=== PATIENT | female | born 1930 | race Caucasian/White ===

== ENCOUNTER 2019-03-06 14:05 | Emergency (ER) | payer MEDICARE, OTHER ==
[~2019-03-06] VITALS: Ht 152.4 cm; Wt 61.2 kg
[~2019-03-06 14:05] MED LIST: ADULT LOW DOSE81 MG PO; ALEVE220 M1 PO; ALEVE220 MG PO; ALLOPURINOL 30300 M1 PO; ANASTROZOLE1 MG; ARICEPT 5 MG TAB5 MG PO; ARIMIDEX1 MG PO; ARTIFICIAL TEA1 EACH OP; ARTIFICIAL TEA1 EACH OPHTHALMIC; ARTIFICIAL TEAR15 M3 OPHTHALMIC; ASPIR 8181 MG PO; ASPIRIN81 M2 PO; AVAPRO 150 MG150 M1 PO; AVAPRO 150 MG150 MG; BACTRIM 400-801 EACH PO; BENTYL10 MG PO; CALCITRATE200 MG PO; CALCIUM 500 +1 EAC5 PO; CALCIUM CIT PO; CALCIUM CITRATE; CINNAMON; CITRACAL + D C1 EACH PO; CLOBETASOL EMOL15 GM TP; CLOBETASOL PROP15 GM; CLOBETASOL PROP50 M1 TOP; CO Q-10 100 MG1 EACH PO; COLACE 100 MG100 MG PO; COLACE100 MG PO; COQ-10100 MG; COQ-10100 MG PO; CRESTOR PO; CRESTOR10 MG PO; CRESTOR5 MG PO; D3 DOTS2000 UNIT PO; DIABETA 5MG TABL5 MG PO; DITROPAN XL10 M1; FISH OIL 500 M1 EACH PO; FLAX OIL1000 MG PO; FLUZONE 2045 MCG/011; GLUCOPHAGE XR500 MG PO; GLYBURID-METFO1 EAC2 PO; GLYBURID-METFO1 EAC3 PO; GLYBURIDE 2.52.5 MG PO; HYDROCODONE-AP1 EAC6 PO; LEVAQUIN 500 M500 M2 PO; LEVAQUIN 500 M500 MG PO; LEVAQUIN PO; LIPEX10 MG PO; MAGNESIUM OXID400 MG PO; MAGOX 400400 MG PO; METFORMIN HCL500 MG PO; MIRALAX17 GM PO; MIRALAX255 GM PO; MUCINEX COUGH1 EACH PO; MUCINEX TA600 MG/TAB PO; MUCUS RELIEF D1 EAC1 PO; MUCUS RELIEF200 MG PO; NATURAL VITA100 UNIT PO; NORCO 5-325 TA1 EACH PO; ONDANSETRON HCL4 M2; ONDANSETRON HCL4 M2 PO; OXYBUTYNIN 5 MG5 M2 PO; OXYBUTYNIN ER 55 MG PO; OXYGEN INH; OXYGEN NASAL; PANTOPRAZOLE SO40 M1 PO; PEPCID AC20 M1 PO; PERCOCET 5-3251 EACH PO; PLAVIX 75 MG TA75 M1; PLAVIX 75 MG TA75 M1 PO; PLAVIX 75 MG TA75 MG PO; PNEUMOVAX25 MCG/0.5; PRILOSEC 20 MG20 MG PO; PROTONIX40 M2; PROZAC 10 MG CA10 MG PO; PROZAC10 M1 PO; PROZAC10 MG PO; REMERON15 M1; RESPIRADONE; RISPERDAL0.5 MG PO; SLOW FE PO; SMZ-TMP PO; STOOL SOFTENER100 MG PO; TOPROL XL25 MG PO; TYLENOL325 MG PO; VENTOLIN HFA 1818 GM INH; VIMPAT100 MG PO; VIT E PO; VITAMIN C100 M1 PO; VITAMIN D1000 UNI1 PO; VITAMIN D2000 UNIT PO; VITAMIN D400 UNI1 PO; XANAX 0.5 MG0.5 MG PO; ZITHROMAX PO; ZOFRAN ODT4 MG PO; [UNRECOGNIZED DRUG - OTHER]; [UNRECOGNIZED DRUG - OTHER] PO
[2019-03-06] MEDS ORDERED: QUETIAPINE FUM100 MG PO (14:19)
[2019-03-06] MEDS ORDERED: REMERON15 MG PO (14:20)
[2019-03-06] MEDS ORDERED: BACTRIM DS TAB1 EACH PO ×2 (14:24→16:58)
[2019-03-06 14:59] LABS: ABSOLUTE BASOPHILS 0.1 thou/uL (0.0-0.2); ABSOLUTE EOSINOPHILS 0.1 thou/uL (0.0-0.7); ABSOLUTE LYMPHOCYTES 3.6 thou/uL (0.8-5.3); ABSOLUTE MONOCYTES 0.4 thou/uL (0.0-1.2); ABSOLUTE NEUTROPHILS 4.9 thou/uL (1.6-8.1); BASOPHILS 1.1 %; EOSINOPHILS 1.6 %; HEMATOCRIT 39.1 % (37.0-47.0); HEMOGLOBIN 13.1 gm/dL (12.0-15.0); LYMPHOCYTES 39.7 %; MCH 30.5 pg (26.0-34.0); MCHC 33.5 g/dL (28.0-37.0); MCV 91.2 fL (80.0-100.0); MONOCYTES 4.8 %; MPV 7.3 fl. (7.2-11.1); NUCLEATED RBCS 0 /100WBC; PLATELET COUNT* 390 thou/uL (150-400); POLYS 52.8 %; RBC 4.29 mil/uL (4.20-5.00); WBC 9.2 thou/uL (4.0-11.0)
[2019-03-06 15:24] LABS: ALBUMIN 3.2 g/dL (3.4-5.0); ALKALINE PHOSPHATASE 122 U/L (46-116); ANION GAP 13 mmol/L (7-16); BUN 24 mg/dL (7-18); CALCIUM 9.2 mg/dL (8.5-10.1); CHLORIDE 99 mmol/L (98-107); CO2 24 mmol/L (21-32); CREATININE 1.3 mg/dL (0.6-1.3); GLUCOSE 499 mg/dL (70-99); NT-PRO BRAIN NAT PEPTIDE 70 pg/mL (<300); POTASSIUM 4.3 mmol/L (3.5-5.1); SGOT 30 U/L (15-37); SGPT 34 U/L (30-65); SODIUM 136 mmol/L (136-145); TOTAL BILIRUBIN 0.2 mg/dL (<0.1-1.0); TOTAL PROTEIN 6.9 g/dL (6.4-8.2); TROPONIN-I LEVEL <0.06 ng/mL (<0.06)
[2019-03-06 15:58] LABS: URINE BILIRUBIN NEGATIVE (Negative); URINE BLOOD TRACE (Negative); URINE CLARITY CLEAR; URINE COLOR YELLOW; URINE GLUCOSE-RANDOM 3+ (Negative); URINE KETONES NEGATIVE (Negative); URINE LEUKOCYTES-REFLEX 1+ (Negative); URINE NITRITE-REFLEX NEGATIVE (Negative); URINE PROTEIN NEGATIVE (Negative); URINE SPECIFIC GRAVITY 1.015 (1.005-1.030); URINE UROBILINOGEN 0.2 E.U./dl (0.2-1.0)
[2019-03-06 16:07] LABS: MUCUS None Seen strn/LPF (None Seen); SQUAMOUS >10 Many /LPF (0-3)
[2019-03-06 16:08] LABS: CASTS None Seen /LPF (None Seen); CRYSTALS None Seen /LPF (None Seen); URINE RBC 0-2 Rare /HPF (0-2); URINE WBC-REFLEX 6-15 Few /HPF (0-5); WBC CLUMPS Few (None Seen)
[2019-03-06] MEDS ORDERED: MIRALAX17 GM PO (16:58)
[2019-03-06] MEDS ORDERED: NYSTATIN15 G3 TOP (16:58)
[2019-03-06] MEDS ORDERED: KEFLEX500 M1 PO (17:50)
[2019-03-06 18:01] VITALS: BP 157/68
--- NOTE | 2019-03-07 10:32 | EKG ---
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1930 Requested By: Danish Nguyễn Order Number: [id number] MD: Bandar Ding Measurements Intervals [place] Rate: 69 P: 61 SC: 193 QRS: -59 QRSD: 111 T: 81 QT: 402 QTc: 431 Interpretive Statements Sinus rhythm Left anterior fascicular block Probable left ventricular hypertrophy Anterior Q waves, possibly due to LVH, possible anterior scar Compared to ECG 05/10/2016 12:09:25 Left ventricular hypertrophy now present Q waves now present T-wave abnormality no longer present Electronically Signed On 03-07-2019 10:31:50 CDT by Bandar Ding [email or web address] <ELECTRONICALLY SIGNED> By: Bandar Ding MD, [facility] 03/07/19 1031 1432 1432 Bandar Ding MD, [facility] /EPI
== END 2019-03-06 18:02 | disposition home or self-care (01) ==
LOC: M.ERS 14:05
PROVIDERS: Nurse Practitioner Family; Physician Assistant
DX: N39.0 Urinary tract infection, site not specified (principal); K59.00 Constipation, unspecified; B37.3 Candidiasis of vulva and vagina; E11.65 Type 2 diabetes mellitus with hyperglycemia; I10 Essential (primary) hypertension; J45.909 Unspecified asthma, uncomplicated; E78.5 Hyperlipidemia, unspecified; K21.9 Gastro-esophageal reflux disease without esophagitis; E11.40 Type 2 diabetes mellitus with diabetic neuropathy, unspecified; Z90.49 Acquired absence of other specified parts of digestive tract; Z88.1 Allergy status to other antibiotic agents; Z88.0 Allergy status to penicillin; Z88.5 Allergy status to narcotic agent; Z88.8 Allergy status to other drugs, medicaments and biological substances

== ENCOUNTER 2019-03-25 19:45 | Inpatient (IN) | payer MEDICARE, OTHER ==
[~2019-03-25] VITALS: Ht 152.4 cm; Wt 61.7 kg
--- NOTE | ~2019-03-25 | CON ---
[address] [address] CONSULTATION Name: JANE NELSON Room: [address] ADM IN M.R.#: [id number] Admission: 03/25/19 Attend Phys: Melecio Casas MD Discharge: Date of : [birth year] Report #: [id number] THIS REPORT FOR: //name// CC: Melecio Casas Phill Powell DATE OF SERVICE: 03/26/2019 REQUESTING PHYSICIAN: Melecio Casas MD REASON FOR CONSULTATION: Syncope, chest pain. HISTORY OF PRESENT ILLNESS: The patient is an 89-year-old female who has a history of remote coronary artery disease. She had an essentially normal cardiac catheterization demonstrating mild nonobstructive disease dating back to 2001. Since then, she really has not been followed up with our office. She was briefly seen in consultation in [address] Christian. We are asked to see her because she had an episode of confusion and walked away from her house and was found by her and she had fallen and hit her head. She had a left-sided facial trauma with laceration, which was repaired in the Emergency Room. She has an incomplete left bundle branch block on ECG, but has demonstrated overnight normal telemetry with a sinus rhythm. There is some question of chest pain intermittently, but she is ruling out for myocardial infarction. Her cardiac troponin levels are normal. She does not have symptoms of significant shortness of breath, weight gain or edema. She is a DNR, but had been having home health check in on her and there really have not been any cardiovascular issues. She denies current symptoms of chest pain, pressure, shortness of breath or weakness. She is taking p.o. without difficulty this morning. She is a poor historian, so all of this was obtained from her daughter who was present in the room for my evaluation. PAST MEDICAL HISTORY: Significant for the following: Cardiac catheterization in 2001 demonstrated nonobstructive coronary artery disease with normal LV function. She was seen in consultation in [address] Christian. At that time, her chest pain was felt to be atypical. Her echocardiogram was normal. She has hypertension, dementia, diabetes mellitus non-insulin requiring, remote TIAs. This is apparently not her first fall. She does need to use a walker according to the daughter who had been arranging for physical therapy [place] [address] CONSULTATION Name: CK NELSONBETH STEWART Room: [address] IN [facility]#: [id number] Admission: 03/25/19 Attend Phys: Melecio Casas MD Discharge: Date of : [birth year] Report #: [id number] PAST SURGICAL HISTORY: Prior cholecystectomy, bladder surgery, tie-up procedure. CURRENT HOME MEDICATIONS: Include the following: Plavix 75 mg daily, Xanax 0.5 mg daily, baby aspirin, glyburide, oxygen, insulin, Seroquel. ALLERGIES: MORPHINE, ALENDRONATE, DOXYCYCLINE, ERYTHROMYCIN, ONDANSETRON, OXYCODONE, PENICILLIN, ACTONEL, TETRACYCLINE, ZOLPIDEM, PROMETHAZINE. REVIEW OF SYSTEMS: GENERAL: No fevers or chills. PULMONARY: No wheezing or cough. CARDIOVASCULAR: No chest pain or shortness of breath. HEMATOLOGIC: No anemia or bleeding disorders. RENAL: History of renal failure. SKIN: No edema. Positive cut over her left eye. No rashes. NEUROLOGIC: Mild headaches. LABORATORY DATA: ECG demonstrates sinus rhythm, complete left bundle branch block. Telemetry overnight shows sinus rhythm with occasional PVCs, no artifact. Hemoglobin is 13.4, white blood cell count is 10.1, platelet count is 416,000. Sodium is 136, potassium is 4.4, chloride is 100, CO2 is 24, BUN is 28, creatinine is 1.3. Troponin I is 0.06. IMAGING: Chest x-ray showed no cardiomegaly or CHF. CT scan of the brain showed a left supraorbital scalp laceration, but there is no intracranial hemorrhage or fracture. IMPRESSION: 1. Mechanical fall. I suspect this is due to deconditioning and abnormal gait. She had been without her walker. It is doubtful that this is cardiovascular in nature. 2. Incomplete left bundle branch block. She has normal telemetry overnight. No evidence of congestive heart failure. Previous evaluation with echocardiogram was unremarkable, but this was 5 years ago. 3. DNR/DNI. At this point in time, I think I would continue with conservative treatment. We will be available on an as needed basis. 4. History of transient ischemic attacks. Based on her fall history I do not think she should be on Plavix anymore. I think she should be transitioned to baby aspirin alone. By: 1131 [id number] Zuniga MD, FACC /nt
[~2019-03-25 19:45] MED LIST changes: +BACTRIM DS TAB1 EACH PO; +KEFLEX500 M1 PO; +NYSTATIN15 G3 TOP; +QUETIAPINE FUM100 MG PO; +REMERON15 MG PO
[2019-03-25 19:49] VITALS: BP 194/90
[2019-03-25] MEDS ORDERED: BACTRIM 400-801 EACH PO (20:37)
[2019-03-25] MEDS ORDERED: NOVOLOG100 UNIT/1 SUBQ (20:48)
[2019-03-25 22:35] LABS: ABSOLUTE BASOPHILS 0.1 thou/uL (0.0-0.2); ABSOLUTE EOSINOPHILS 0.2 thou/uL (0.0-0.7); ABSOLUTE LYMPHOCYTES 3.9 thou/uL (0.8-5.3); ABSOLUTE MONOCYTES 0.6 thou/uL (0.0-1.2); ABSOLUTE NEUTROPHILS 5.3 thou/uL (1.6-8.1); BASOPHILS 1.2 %; HEMATOCRIT 39.9 % (37.0-47.0); HEMOGLOBIN 13.4 gm/dL (12.0-15.0); LYMPHOCYTES 38.5 %; MCH 30.2 pg (26.0-34.0); MCHC 33.7 g/dL (28.0-37.0); MCV 89.7 fL (80.0-100.0); MONOCYTES 5.6 %; MPV 7.1 fl. (7.2-11.1); NUCLEATED RBCS 0 /100WBC; PLATELET COUNT* 416 thou/uL (150-400); POLYS 52.7 %; RBC 4.44 mil/uL (4.20-5.00); RDW-CV 13.1 % (10.5-14.5); WBC 10.1 thou/uL (4.0-11.0)
[2019-03-25 22:42] LABS: ANION GAP 13 mmol/L (7-16); BUN 28 mg/dL (7-18); CALCIUM 9.7 mg/dL (8.5-10.1); CHLORIDE 102 mmol/L (98-107); CO2 24 mmol/L (21-32); CREATININE 1.3 mg/dL (0.6-1.3); GLUCOSE 266 mg/dL (70-99); POTASSIUM 3.9 mmol/L (3.5-5.1); SODIUM 139 mmol/L (136-145)
[2019-03-25 22:54] LABS: ALBUMIN 3.8 g/dL (3.4-5.0); ALKALINE PHOSPHATASE 134 U/L (46-116); SGOT 20 U/L (15-37); SGPT 31 U/L (30-65); TOTAL BILIRUBIN 0.2 mg/dL (<0.1-1.0); TOTAL PROTEIN 8.2 g/dL (6.4-8.2); TROPONIN-I LEVEL <0.06 ng/mL (<0.06)
[2019-03-26 00:25] VITALS: BP 134/55
[2019-03-26 01:00] VITALS: BP 181/75
--- NOTE | 2019-03-26 01:00 | NUR ---
RECEIVED REPORT AND ADMITTED TO ROOM AT 0030. PT HAS END STAGE DEMENTIA, DAUGHTER AT BEDSIDE AND STAYING. LT FOREHEAD WITH LACERATION, SUTURES, STERI STRIPS AND BRUISING. SM ABRASION TO LT LATERAL HAND. TELEMETRY APPLIED SHOWING SR. DGT ASSISTING WITH ADMISSION HX. WILL CONT TO MONITOR AND ASSIST NEEDED.
[2019-03-26 04:00] VITALS: BP 151/68
--- NOTE | 2019-03-26 07:29 | NUR ---
SLEPT WELL THE REST OF THE NIGHT. NO CHANGE IN ASSESSMENT. DGT REMAINS AT BEDSIDE. TELEMETRY SHOWING SR. HS GOALS OF REST AND SAFETY ACHIEVED. HOURLY ROUNDING OBSERVED.
--- NOTE | 2019-03-26 10:20 | NUR ---
Pt was asleep, spoke with Pt's dtr at bedside. Pt resides at home with her , completes most of IADLs, and assists with ADLs as needed. Dtr also assist with meals and assisting Pt with bathing and grooming. Pt carries a dx of dementia. Pt was discharged from [facility] hospice about 6 months ago. Pt is current with [facility] and plan is to resume HH at in. Pt uses a walker for mobility. Pt wears o2 at [facility], provided through [employer]. Cm will fax resumption orders to HH at in. Following.
[2019-03-26 11:53] VITALS: BP 120/49
[2019-03-26 16:00] VITALS: BP 134/70
--- NOTE | 2019-03-26 17:05 | NUR ---
PT WORKED WITH PT/OT TODAY AND DAUGHTER WAS AT BEDSIDE TO FEED PT DURING MEALS. WILL CONTINUE TO ASSESS.
[2019-03-26 19:45] VITALS: BP 140/55
--- NOTE | 2019-03-26 19:45 | NUR ---
RECEIVED REPORT AND ASSUMED CARE OF PT, ASSESSMENT COMPLETED. AT BEDSIDE, BED ALARM ON. PT PLEASANTLY CONFUSED. LT FOREHEAD ECCHYMOTIC, SUTURES AND STERI STRIPS NOTED. PT ABLE TO OPEN AND CLOSE LT EYE. TELEMETRY ON SHOWING SR. WILL CONT TO MONITOR AND ASSIST NEEDED.
[2019-03-27] VITALS: BP 193/70
[2019-03-27 04:00] VITALS: BP 152/66
--- NOTE | 2019-03-27 07:15 | NUR ---
SLEPT WELL TONIGHT. DGT AND STAFF ASSISTED TO BSC, VOIDING AND INCONT. TELEMETRY SHOWING SR. NO CHANGE IN ASSESSMENT. HS GOALS OF REST AND SAFETY ACHIEVED. HOURLY ROUNDING OBSERVED.
[2019-03-27 08:03] VITALS: BP 157/76
[2019-03-27 11:33] VITALS: BP 157/76
[2019-03-27 12:00] VITALS: BP 132/62
[2019-03-27 13:03] VITALS: BP 157/76
--- NOTE | 2019-03-27 13:15 | NUR ---
PRODUCT PROMOTER SALES PERSON INFORMED THAT THE PATIENT WOULD D/C TODAY HOME WITH HH. PATIENT ON-SERVICE WITH [facility] PRIOR TO ADMIT. D/C FISH HOUSEKEEPER SPOKE TO INTAKE WITH [facility] AND THEY INFORM THAT THE PATIENT WAS ON-SERVICE AND HAD NURSING, PT, AND OT. DR NASH INFORMS THAT SHE WILL ALSO ORDER SW WITH THE TO ASSESS THE NEED FOR RESPITE CARE FOR THE PATIENT. D/C FISH HOUSEKEEPER FAXED PATIENT'S FACESHEET, H&P, AND D/C ORDERS TO [facility]. CM WILL REMAIN AVAILABLE TO ASSIST AND FOLLOW NEEDED. [facility] PHONE: [phone] FAX: [phone]
--- NOTE | 2019-03-27 14:01 | NUR ---
ASSUMED CARE OF PT AROUND 0730 THIS AM. DAUGHTER AT BEDSIDE AND IS FAMILIAR WITH CARING FOR PT. PT HAS ORDERS TO DC HOME WITH HOME HEALTH. CASE MANAGEMENT SET UP HOME HEALTH. DAUGHTER GIVEN DC INSTRUCTIONS AND VERBALIZES UNDERSTANDING. NO OTHER CONCERNS AT THIS TIME. CLWR. WCTM.
--- NOTE | 2019-03-27 14:26 | EKG ---
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[facility] : 1930 Requested By: Gamal Munguia Order Number: [id number] MD: Ricky Zuniga Measurements Intervals [place] Rate: 62 P: 22 NH: 223 QRS: -54 QRSD: 116 T: 96 QT: 438 QTc: 445 Interpretive Statements Sinus rhythm Borderline prolonged [place] interval Incomplete left bundle branch block LVH with secondary repolarization abnormality Compared to ECG 03/06/2019 14:32:38 Left bundle-branch block now present Early repolarization now present Left anterior fascicular block no longer present Electronically Signed On 03-27-2019 14:26:02 CDT by Ricky Zuniga [email or web address] <ELECTRONICALLY SIGNED> By: Ricky Zuniga MD, [facility] 03/27/19 1426 15 221 Ricky Zuniga MD, [facility] /EPI
--- NOTE | 2019-03-27 14:27 | EKG ---
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 03/27/19 1426 0004 0004 Ricky Zuniga MD, [facility] /EPI
--- NOTE | 2019-03-28 09:14 | NUR ---
PT. DISCHARGED TO HOME WITH HOME HEALTH PRIOR TO O.T. EVAL. PLEASE ORDER FURTHER O.T. SERVICES IF NEEDED.
== END 2019-03-27 15:01 | disposition home health service (06) | DRG 605 ==
LOC: M.ERS 19:45 → M.TBA-ER 23:46 → M.2W 23:46
PROVIDERS: Nurse Practitioner Family; ADMIT Internal Medicine
PROC: 0HQ1XZZ Repair Face Skin, External Approach (ICD-10-PCS; principal; 2019-03-25)
DX: S01.81XA Laceration without foreign body of other part of head, initial encounter (principal); D68.69 Other thrombophilia; I25.10 Atherosclerotic heart disease of native coronary artery without angina pectoris; Z66 Do not resuscitate; I10 Essential (primary) hypertension; E78.5 Hyperlipidemia, unspecified; K21.9 Gastro-esophageal reflux disease without esophagitis; F03.90 Unspecified dementia, unspecified severity, without behavioral disturbance, psychotic disturbance, mood disturbance, and anxiety; E11.40 Type 2 diabetes mellitus with diabetic neuropathy, unspecified; J45.909 Unspecified asthma, uncomplicated; I44.7 Left bundle-branch block, unspecified; G47.30 Sleep apnea, unspecified; W18.09XA Striking against other object with subsequent fall, initial encounter; Z86.73 Personal history of transient ischemic attack (TIA), and cerebral infarction without residual deficits; Z90.49 Acquired absence of other specified parts of digestive tract; Y93.89 Activity, other specified; Y92.098 Other place in other non-institutional residence as the place of occurrence of the external cause; Y99.8 Other external cause status; Z79.02 Long term (current) use of antithrombotics/antiplatelets; Z79.4 Long term (current) use of insulin; Z79.82 Long term (current) use of aspirin; Z79.899 Other long term (current) drug therapy; Z88.1 Allergy status to other antibiotic agents; Z88.5 Allergy status to narcotic agent; Z88.0 Allergy status to penicillin; Z88.8 Allergy status to other drugs, medicaments and biological substances; Z82.49 Family history of ischemic heart disease and other diseases of the circulatory system